=== PATIENT | female | born 1970 | race Caucasian/White ===

== ENCOUNTER 2024-05-18 14:57 | Outpatient (CLI) | payer BC | END 2024-05-18 14:58 | disposition home or self-care (01) | LOC: CSHMRI 14:57 | PROVIDERS: ATTEND Physician Assistant | DX: M47.26 Other spondylosis with radiculopathy, lumbar region (principal); M51.16 Intervertebral disc disorders with radiculopathy, lumbar region | CPT/HCPCS: 72148 ==